=== PATIENT | male | born 1995 | race Caucasian/White ===

== ENCOUNTER 2017-09-18 19:18 | Emergency (ER) | payer BC ==
--- NOTE | 2017-09-18 20:01 | EDM.PDOC ---
ED HPI GENERAL MEDICAL PROBLEM - General Chief Complaint: Bite:Animal, Insect Stated Complaint: TICK BITE ON RT SHOULDER Time Seen by Provider: 09/18/17 19:42 Source of Information: Reports: Patient History Limitations: Reports: No Limitations - History of Present Illness INITIAL COMMENTS - FREE TEXT/NARRATIVE: noticed an area on his right shoulder that is red, scabbed over Mom sent him in because of concern for tick bite he hasn't taken a tick off No fever, nausea, vomiting or diarrhea He has a fungal rash on his back; he has a hx of this Onset: Gradual Location: Reports: Back Severity: Mild Improves with: Reports: None Worsens with: Reports: None - Related Data Allergies Allergy/AdvReac Type Severity Reaction Status Date / Time cat dander Allergy Hives Verified 09/18/17 19:55 Home Meds: Home Meds NK [No Known Home Meds] 09/18/17 [History] ED ROS GENERAL - Review of Systems Review Of Systems: ROS reveals no pertinent complaints other than HPI. ED EXAM, ANIMAL BITE - Physical Exam Exam: See Below Exam Limited By: No Limitations General Appearance: Alert, WD/WN, No Apparent Distress Throat/Mouth: Normal Inspection, Normal Oropharynx Head: Atraumatic, Normocephalic Neck: Normal Inspection, Full Range of Motion Respiratory/Chest: No Respiratory Distress, Lungs Clear, Normal Breath Sounds, No Accessory Muscle Use Cardiovascular: Regular Rate, Rhythm Back Exam: Other (fungal rash to the back, he has an area of redness/ nickel sized, red, scabbed. NO evidence of infection. No bullseye) Extremities: Normal Range of Motion Neurological: Alert, Oriented, CN II-XII Intact, Normal Cognition, Normal Gait Psychiatric: Normal Affect, Normal Mood Course - Vital Signs Last Recorded V/S: Last Vital Signs Temp 96.9 F 09/18/17 20:05 Pulse 70 09/18/17 20:05 Resp 15 09/18/17 20:05 BP 123/79 09/18/17 20:05 Pulse Ox 98 09/18/17 20:05 - Re-Assessments/Exams Free Text/Narrative Re-Assessment/Exam: 09/18/17 20:[address] on doxy to cover for deer tick/ Departure - Departure Time of Disposition: 19:59 Disposition: Home, Self-Care 01 Condition: Good Clinical Impression: Cellulitis, Tick bite - Discharge Information Instructions: Tick Bite Information, Adult, Cellulitis, Adult Referrals: PCP,None [Primary Care Provider] - Forms: ED Department Discharge Additional Instructions: For the rash; 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 Call with any questions. - Problem List & Annotations (1) Tick bite SNOMED Code(s): 84396983 Code(s): W57.XXXA - BIT/STUNG BY NONVENOM INSECT & OTH NONVENOM ARTHROPODS, INIT Status: Acute Priority: Low Current Visit: Yes Qualifiers: Encounter type: initial encounter Qualified Code(s): W57.XXXA - Bitten or stung by nonvenomous insect and other nonvenomous arthropods, initial encounter - Problem List Review Problem List Initiated/Reviewed/Updated: Yes
== END 2017-09-18 20:11 | disposition home or self-care (01) ==
LOC: JP.ED 19:18
DX: L03.312 Cellulitis of back [any part except buttock and flank] (principal); Z91.048 Other nonmedicinal substance allergy status; W57.XXXA Bitten or stung by nonvenomous insect and other nonvenomous arthropods, initial encounter
CPT/HCPCS: 99282